=== PATIENT | female | born 1965 | race Caucasian/White ===

== ENCOUNTER → 2019-12-10 10:35 | Outpatient (BNVA) | payer SELFPAY | PROVIDERS: Family Provider Family Medicine; PCP Family Medicine; Visit Provider Family Medicine | DX: I10 Essential (primary) hypertension (principal) | CPT/HCPCS: 80048; 80061; 83735 ==

== ENCOUNTER → 2020-09-28 15:37 | Outpatient (BNVA) | payer SELFPAY | PROVIDERS: Family Provider Family Medicine; PCP Family Medicine; Visit Provider Family Medicine | DX: E78.2 Mixed hyperlipidemia (principal); I10 Essential (primary) hypertension; R00.0 Tachycardia, unspecified; R07.9 Chest pain, unspecified; Z82.49 Family history of ischemic heart disease and other diseases of the circulatory system | CPT/HCPCS: 80053; 80061 ==

== ENCOUNTER → 2021-02-24 09:33 | Outpatient (BNVA) | payer BC, SELFPAY | PROVIDERS: Family Provider Family Medicine; PCP Family Medicine; Visit Provider Emergency Medicine | DX: J02.9 Acute pharyngitis, unspecified (principal); J06.9 Acute upper respiratory infection, unspecified; H69.80 Other specified disorders of Eustachian tube, unspecified ear; J30.2 Other seasonal allergic rhinitis | CPT/HCPCS: 87880 ==

== ENCOUNTER → 2021-05-07 10:32 | Outpatient (BNVA) | payer BC, SELFPAY | PROVIDERS: Family Provider Family Medicine; PCP Family Medicine; Visit Provider Family Medicine | DX: I10 Essential (primary) hypertension (principal); L21.9 Seborrheic dermatitis, unspecified; E78.2 Mixed hyperlipidemia; J30.2 Other seasonal allergic rhinitis; L25.9 Unspecified contact dermatitis, unspecified cause | CPT/HCPCS: 80053; 80061 ==

== ENCOUNTER → 2021-12-02 11:01 | Outpatient (BNVA) | payer BC, SELFPAY | PROVIDERS: Family Provider Family Medicine; PCP Family Medicine; Visit Provider Family Medicine | DX: I10 Essential (primary) hypertension (principal); L21.9 Seborrheic dermatitis, unspecified; J06.9 Acute upper respiratory infection, unspecified; E78.2 Mixed hyperlipidemia | CPT/HCPCS: 80053 ==

== ENCOUNTER → 2022-06-09 15:53 | Outpatient (BNVA) | payer BC, SELFPAY | PROVIDERS: Family Provider Family Medicine; PCP Family Medicine; Visit Provider Emergency Medicine | DX: E07.9 Disorder of thyroid, unspecified (principal); H81.12 Benign paroxysmal vertigo, left ear | CPT/HCPCS: 80053; 84439; 84443; 84481; 85025; 86376 ==

== ENCOUNTER → 2022-06-11 13:43 | Outpatient (BNVA) | payer BC, SELFPAY | PROVIDERS: Family Provider Family Medicine; PCP Family Medicine; Visit Provider Emergency Medicine | DX: E87.6 Hypokalemia (principal) | CPT/HCPCS: 84132 ==

== ENCOUNTER 2022-07-19 13:43 | Outpatient (CLI) | payer BC, SELFPAY ==
--- NOTE | 2022-07-19 14:15 | US_ITS ---
WS: [id number] ULTRASOUND THYROID TECHNIQUE: Ultrasound of the thyroid. CLINICAL INFORMATION: E07.9 - Disorder of thyroid, unspecified COMPARISON: None. FINDINGS: Thyroid: Right and left thyroid lobes are normal in size with homogeneous echotexture. A few small an echoic lesions in both thyroid lobes likely incidental colloid cysts. Right thyroid lobe: 4.1 cm x 1.4 cm x 2.0 cm Left thyroid lobe: 4.0 cm x 1.4 cm x 1.4 cm. Isthmus: 0.2 mm. Cervical lymphadenopathy: Normal-appearing lymph nodes. 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 No other suspicious findings.
== END 2022-07-19 13:44 | disposition home or self-care (01) ==
LOC: RAD 13:45
PROVIDERS: PCP Family Medicine; Visit Provider Emergency Medicine
DX: E07.9 Disorder of thyroid, unspecified (principal); I10 Essential (primary) hypertension; E78.2 Mixed hyperlipidemia
CPT/HCPCS: 76536; 80053; 80061; 83735; 84439; 84443; 84481